=== PATIENT | male | born 1970 | race Caucasian/White ===

== ENCOUNTER 2017-09-05 13:57 | Outpatient (CLI) | payer BC ==
--- NOTE | 2017-09-05 16:48 | MRI ---
MRI RIGHT DISTAL THIGH: Date: 09/05/17 HISTORY: Strain of quadriceps tendon. COMPARISON: None. FINDINGS: There is a high grade II injury of the rectus femoris indirect head. There is a large volume hemorrha ge between the indirect and the direct head. There is also a high grade tear of the direct head muscu lature. Partial tear of the direct head tendon is also present. There is 2.6 cm retraction indirect head distal myotendinous junction. Bones: Visualized marrow signal is normal. IMPRESSION: High grade internal degloving injury of the indirect head of the rectus femoris with an associated fu ll thickness tear at the distal tendon with a 2.6 cm gap. There is also a low grade II injury of the lateral margin of the direct head myotendinous junction with myotendinous stripping and muscle tearin g. POS: [facility]
== END 2017-09-05 13:58 | disposition home or self-care (01) ==
LOC: SCSMRI 13:57
PROVIDERS: ATTEND Orthopaedic Surgery
DX: S76.111A Strain of right quadriceps muscle, fascia and tendon, initial encounter (principal)